=== PATIENT | male | born 1975 | race Two or more races ===

== ENCOUNTER 2024-05-13 12:00 | Emergency (ER) | payer OTHER ==
--- NOTE | 2024-05-13 12:41 | ED ---
General Adult HPI - General Chief complaint: Extremity Injury, Lower Stated complaint: L leg pain Time Seen by Provider: 05/13/24 12:10 Source: patient, RN notes reviewed, old records reviewed Mode of arrival: ambulatory Limitations: no limitations - History of Present Illness Initial comments: This is a 48-year-old male who states he was doing some work at work 3 days ago and he slipped and the posterior aspect of his thigh started to hurt. Patient states the first day it was not very bad but the next day he found it very difficult to walk or fully extend his knee or flex at the knee the pain is in the hamstring. Patient denies any swelling or redness to the distal leg. Patient denies any ecchymosis or swelling or redness to the hamstring area. Patient denies any fever or chills. Patient denies any knee pain. Patient Nuys any hip pain. Patient has any ankle or foot pain. - Related Data Previous Rx's Medication Instructions Recorded Ketorolac [Toradol] 10 mg PO Q8HR #15 tab 05/13/24 Allergies Allergy/AdvReac Type Severity Reaction Status Date / Time Iodinated Contrast Media Allergy Rash/Hives Verified 05/13/24 12:13 Review of Systems ROS Statement: Those systems with pertinent positive or pertinent negative responses have been documented in the HPI. ROS Other: All systems not noted in ROS Statement are negative. Past Medical History Past Medical History: Asthma, Diabetes Mellitus, Hypertension History of Any Multi-Drug Resistant Organisms: None Reported Additional Past Surgical History / Comment(s): lower back surgery Past Psychological History: No Psychological Hx Reported Smoking Status: Never smoker Past Alcohol Use History: None Reported Past Drug Use History: None Reported General Exam - General Exam Comments Initial Comments: GENERAL Patient is well-developed and well-nourished. Patient is in mild distress. EYES Patient's pupils are equal and round. Extraocular motion is intact SKIN Unremarkable NEURO The patient is alert and oriented A&Ox3 PYSCH Patient has normal interpersonal interactions. MUSCULOSKELETAL Patient has tenderness along the hamstring but particular at the distal hamstr ing region. There is no ecchymosis or swelling in that area. Patient has pain with flexion of the knee and no pain with extension except when it is fully extended and the hamstring is tight. Limitations: no limitations Course Vital Signs 05/13/24 12:06 Pulse Rate 98 Respiratory 17 Rate Blood Pressure 133/76 O2 Sat by Pulse 99 Oximetry Medical Decision Making - Medical Decision Making Was pt. sent in by a medical professional or institution ([facility] Randall, RELATIONSHIP ASSOCIATE, urgent care, hospital, or halfway...) When possible be specific @ -No Did you speak to anyone other than the patient for history (EMS, parent, family, police, friend...)? What history was obtained from this source @ -No Did you review nursing and triage notes (agree or disagree)? Why? @ -I reviewed and agree with nursing and triage notes Were old charts reviewed (outside hosp., previous admission, EMS record, old EKG, old radiological studies, urgent care reports/EKG's, halfway records)? Report findings @ -No old charts were reviewed Differential Diagnosis? @ -Differential Musculoskeletal Muscular strain, contusion, ligament sprain, fracture, arthritis, septic arthritis, bursitis, cellulitis, muscle spasm, nerve compression, DVT, arterial occlusion, herpes zoster, electrolyte abnormality, tumor.... This is not meant to be in all inclusive list EKG interpreted by me (3pts min.). @ -As above X-rays interpreted by me (1pt min.). @ -X-ray of the femur shows no obvious fracture however there is a lucency in the distal femur so patient will get a CAT scan CT interpreted by me (1pt min.). @ -CT of the femur shows no fracture U/S interpreted by me (1pt. min.). @ -None done What testing was considered but not performed or refused? (CT, X-rays, U/S, labs)? Why? @ -None What meds were considered but not given or refused? Why? @ -None Did you discuss the management of the patient with other professionals (professionals i.e. [facility] Randall, RELATIONSHIP ASSOCIATE, lab, RT, psych nurse, clinical social work aide, ramp supervisor, teacher, commissioned security officer, showcase maker)? Give summary @ -No Was smoking cessation discussed for >3mins.? @ -No Was critical care preformed (if so, how long)? @ -No Were there social determinants of health that impacted care today? How? (Homelessness, low income, unemployed, alcoholism, drug addiction, transportation, low edu. Level, literacy, decrease access to med. care, custodial, rehab)? @ -No Was there de-escalation of care discussed even if they declined (Discuss DNR or withdrawal of care, Hospice)? DNR status @ -No What co-morbidities impacted this encounter? (DM, HTN, Smoking, COPD, CAD, Cancer, CVA, ARF, Chemo, Hep., AIDS, mental health diagnosis, sleep apnea, morbid obesity)? @ -None Was patient admitted / discharged? Hospital course, mention meds given and route, prescriptions, significant lab abnormalities, going to OR and other pertinent info. @ -Patient received Toradol while in the emergency department. Patient's x-rays and CAT scan showed no fracture. Undiagnosed new problem with uncertain prognosis? @ -No Drug Therapy requiring intensive monitoring for toxicity (Heparin, Nitro, Insulin, Cardizem)? @ -No Were any procedures done? @ -No Diagnosis/symptom? @ -Hamstring strain Acute, or Chronic, or Acute on Chronic? @ -Acute Uncomplicated (without systemic symptoms) or Complicated (systemic symptoms)? @ -Uncomplicated Side effects of treatment? @ -No Exacerbation, Progression, or Severe Exacerbation? @ -No Poses a threat to life or bodily function? How? (Chest pain, [place], [place], pneumonia, PE, COPD, DKA, ARF, appy, cholecystitis, CVA, Diverticulitis, Homicidal, Suicidal, threat to staff... and all critical care pts) @ -No Disposition Clinical Impression: Hamstring strain Disposition: HOME SELF-CARE Condition: Good Instructions (If sedation given, give patient instructions): Hamstring Injury (ED), Hamstring Exercises (ED) Prescriptions: Ketorolac [Toradol] 10 mg PO Q8HR #15 tab Is patient prescribed a controlled substance at d/c from ED?: No Referrals: Nonstaff,Physician [Primary Care Provider] - 1-2 days Time of Disposition: 14:56
[2024-05-13] MEDS: KETOROLAC 15 MG/ML 1 ML VIAL IM STA (12:54)
--- NOTE | 2024-05-13 13:31 | XR ---
EXAMINATION TYPE: XR femur LT DATE OF EXAM: 05/13/2024 1:05 PM COMPARISON: None CLINICAL INDICATION: Male, 48 years old with history of Trauma, pain; PHH, pain TECHNIQUE: XR femur LT examined in Frontal and lateral projections. FINDINGS: No evidence of acute osseous pathology, joint dislocation, or soft tissue swelling. Mild o steophyte formations of the superior acetabulum. Mild joint space narrowing. Stent grafts project ove r the pelvis. IMPRESSION: 1. No acute osseous pathology. 2. Mild degeneration changes of the hip. [facility], , 05/13/2024 1:28 PM
--- NOTE | 2024-05-13 14:33 | CT ---
EXAMINATION TYPE: CT femur LT wo con CT DLP: 804.4 mGycm, Automated exposure control for dose reduction was used. DATE OF EXAM: 05/13/2024 2:18 PM COMPARISON: Left femur radiograph the same date CLINICAL INDICATION:Male, 48 years old with history of pain; PHH, POSTERIOR FEMUR PAIN DISTAL BEHIND KNEE. PT STATES HE DID HAVE AN INJURY TECHNIQUE: Axial images were obtained of the left femur without the use of IV contrast. Additional c oronal and sagittal reformatted images and soft tissue and bone window were obtained for review. 3-D reconstruction was created on a separate workstation. FINDINGS: There is no evidence of fracture, subluxation, or dislocation. No significant soft tissue swelling or joint effusion is identified. No focal muscular atrophy or edema is identified. No radiop aque foreign body identified. Left iliac vascular stent identified. Enlarged prostate measuring 5.3 c m with central coarse calcifications. IMPRESSION: No acute fracture or dislocation. [facility], , 05/13/2024 2:30 PM
[2024-05-13 15:14] VITALS: BP 126/82; PULSE 86; RESP 18; TEMP 98
== END 2024-05-13 15:14 | disposition home or self-care (01) ==
LOC: EC 12:00
DX: S86.912A Strain of unspecified muscle(s) and tendon(s) at lower leg level, left leg, initial encounter (principal); Z91.041 Radiographic dye allergy status; W01.0XXA Fall on same level from slipping, tripping and stumbling without subsequent striking against object, initial encounter
CPT/HCPCS: 73552; 73700; 99284; 96372; J1885